=== PATIENT | female | born 2000 | race Hispanic/Latino ===

== ENCOUNTER 2020-09-18 14:29 | Emergency (ER) | payer OTHER ==
[~2020-09-18] VITALS: Ht 160 cm; Wt 66.6 kg
[2020-09-18] MEDS ORDERED: MIRE1IUD IU (14:46)
[2020-09-18] MEDS ORDERED: NAPROXEN 250 MG TAB PO ONE (17:45)
[2020-09-18] MEDS ORDERED: LIDOCAINE 4% CREAM 5GM (LMX4) TOP ONE (17:45)
[2020-09-18] MEDS ORDERED: ANEC4CRE3 TOP (17:45)
[2020-09-18] MEDS ORDERED: NAPR-837 PO (17:45)
[2020-09-18 17:59] VITALS: BP 129/81
== END 2020-09-18 18:06 | disposition home or self-care (01) ==
LOC: M ED 14:29
DX: N64.4 Mastodynia (principal)